=== PATIENT | female | born 1960 | race Caucasian/White ===

== ENCOUNTER → 2016-07-09 | Outpatient (CLI) | payer OTHER, MEDICARE ==
[~2016-07-09] MED LIST: /CLON1TA OR; ADVAIR INH; ADVIL PM OR; AMOX500C OR; ASPI1TAB PO; BABY81CH OR; BACL10TA2 OR; BACL10TA2 PO; BUSP5TA PO; CALCTAB68 PO; CELE40TA OR; COLA50CA OR; DICLCRY PO; DULO30CA PO; FLEX10TA2 PO; FOLI800T PO; HYDROXCHLOROQUINE OR; IBUP60TA PO; MELO15TA3 PO; METH10TA2; METH5TAB2 OR; METH750T; MOTR200T4 OR; MULTCAP9 PO; MULTIVIT; MULTIVIT OR; NAPR500T OR; NAPR500T81 OR; NEUR300C OR; NEUR400C OR; OXYC-208 PO; OXYCODONE IR PO; PRED10TA2 OR; PRED2.5T PO; PRED5TAB OR; PREG100CA PO; PRIL20CA OR; PROV90AE INH; ROBA750T; SING5CHW PO; SOMA350T OR; TENORETIC 50/25 OR; TRAM50TA2 OR; TRAZ100T OR; TYLENOL ARTHRITIS OR; VARE05TA OR; VICO5TAB OR; VITA100027 OR; VITA100037 PO; VITA400C35 PO; VITA500C OR; VITA500T3 PO; VITAMIN E OR; VOLT1GEL EXT; VOLT1GEL2 TD; Z PAK PO; ZINC50TA22 PO; arthritis tylenol; methadone OR; topomax PO
--- NOTE | 2016-07-10 00:32 | ECWPNPC ---
PATIENT NAME: ELLE MORENO : 1960 GENDER: FEMALE VISIT DATE: 07/09/2016 DISCHARGE DATE: 07/09/16 1210 VISIT LOCKED DATE TIME: PHYSICIAN: HELEN ANTHONY RESOURCE: HELEN ANTHONY REASON FOR APPOINTMENT 1. BACK HISTORY OF PRESENT ILLNESS HISTORY OF PRESENT ILLNESS: PAIN THE PATIENT DESCRIBES THE PAIN... FALL RISK SCREENING: SCREENING :NO FALLS IN THE PAST YEAR TODAY'S VISIT: NOTES: RATES PAIN TODAY 6.5/10. TODAY WORST AREA OF PAIN IS RIGHT HIP. NO FALLS SINCE FEBRUARY. IS HAVING BURNING IN RIGHT SHOULDER. HAS BEEN DIAGNOSES WITH OSTEOPOROSIS AND WILL BE STARTING ON MEDS FOR THIS. ALSO HAS BEEN DIAGNOSED WITH MACULAR DEGENERATION AND IS HAVING INTRAOCULAR INJECTIONS. . CURRENT MEDICATIONS TAKING ALBUTEROL 90 MCG/ACT AEROSOL SOLUTION INHALATION EVERY 4 HOURS NEEDED TAKING ASPIR-81 81 MG TABLET DELAYED RELEASE 1 TABLET ORALLY ONCE A DAY TAKING CALCIUM + D 600-200 MG-UNIT TABLET 1 TABLET WITH FOOD ORALLY BID TAKING COLACE 100 MG CAPSULE 1 CAPSULE NEEDED ORALLY BID TAKING FOLIC ACID 800 MCG TABLET 1 TABLET ORALLY BID TAKING MULTI FOR HER 50+ TABLET 1 TAB(S) ORALLY BID TAKING OMEPRAZOLE 20 MG CAPSULE DELAYED RELEASE 1 CAPSULE ORALLY BID TAKING SINGULAIR 10 MG TABLET 1 TABLET IN THE EVENING ORALLY ONCE A DAY TAKING ADVAIR DISKUS 100-50 MCG/DOSE AEROSOL POWDER BREATH ACTIVATED 1 PUFF INHALATION TWICE A DAY TAKING VITAMIN E 400 UNIT CAPSULE 1 CAPSULE ORALLY BID TAKING TRAZODONE HCL 100 MG TABLET 1 TABLET AT BEDTIME ORALLY ONCE DAILY TAKING ZINC 50 MG TABLET 1 TABLET ORALLY BID TAKING HYDROXYCHLOROQUINE SULFATE 200 MG TABLET 1 TABLET WITH FOOD OR MILK ORALLY BID TAKING LISINOPRIL 20 MG TABLET 1 TABLET ORALLY ONCE A DAY TAKING BACLOFEN 20 MG TABLET 1 TABLET WITH FOOD OR MILK ORALLY FOUR TIMES DAILY TAKING CYMBALTA 30 MG CAPSULE DELAYED RELEASE PARTICLES 1 CAPSULE ORALLY ONCE A DAY TAKING METHADONE HCL 10 MG TABLET 2 TABLETS ORALLY Q 8 HOURS MDD=6 CHRONIC PAIN TAKING OXYCODONE HCL 5 MG TABLET 1 TABLET ORALLY EVERY 4-6 HRS PRN PAIN MDD=5 TAKING CHANTIX STARTER GALINDO 2 TAB ORAL DAILY NOT-TAKING CYANOCOBALAMIN 500 MCG TABLET 1 TABLET ORALLY BID NOT-TAKING ZOFRAN ODT 4 MG TABLET DISPERSIBLE 1 TABLET ON THE TONGUE AND ALLOW TO DISSOLVE ORALLY EVERY 8 HRS NOT-TAKING ATORVASTATIN CALCIUM 10 MG TABLET 1 TABLET ORALLY ONCE A DAY NOT-TAKING VITAMIN D 1000 UNIT TABLET 1 TABLET ORALLY BID DISCONTINUED BUPROPION HCL (SR) 150 MG TABLET EXTENDED RELEASE 12 HOUR 1 TABLET ORALLY TWICE A DAY DISCONTINUED OXYCODONE HCL 5 MG CAPSULE 1 CAPSULE NEEDED ORALLY EVERY 4-6 HRS PRN PAIN MDD 6 MEDICATION LIST REVIEWED AND RECONCILED WITH THE PATIENT PAST MEDICAL HISTORY 2015 LEFT FOOT FX ANKLE SPRAIN - FALL OCT 15 HTN, DEPRESSION, COPD ,LUPUS, FIBROMYALGIA MACULAR DEGENERATION OSTEOPOROSIS ALLERGIES FUROSEMIDE: RASH AND SOB: ALLERGY SULFA (FOR ALLERGY USE ONLY): RASH AND SOB: ALLERGY CODEINE PHOSPHATE (FOR ALLERGIES USE ONLY): NAUSEA/VOMITING: SIDE EFFECTS TOPIRAMATE: KIDNEY STONES: ALLERGY NSAIDS: RASH: ALLERGY LYRICA: SEVERE EDEMA: ALLERGY SOCIAL HISTORY GENERAL: TOBACCO USE ARE YOU A:NONSMOKER LEARNING BARRIERS / SPECIAL NEEDS ORIENTED TO PLAN OF CARE: PATIENT, PAIN MANAGEMENT PATIENT, ORIENTED TO PLAN OF CARE: PATIENT, PAIN MANAGEMENT PATIENT. NEW PATIENT PAIN DIARY TODAY'S VISITNOTES FROM 0-10, WHAT LEVEL IS YOUR PAIN TODAY?0 PAIN CLINIC PFS, CLERGY, PUBLIC HEALTH REFERRALS PFS REFERRAL NEEDED?NO CLERGY REFERRAL NEEDED?NO PUBLIC HEALTH REFERRAL NEEDED?NO WAS THE PROVIDER NOTIFIED OF ANY PERTINENT INFO?NO PFS REFERRAL NEEDED?NO CLERGY REFERRAL NEEDED?NO PUBLIC HEALTH REFERRAL NEEDED?NO WAS THE PROVIDER NOTIFIED OF ANY PERTINENT INFO?NO REVIEW OF SYSTEMS CONSTITUTIONAL: ANY CHANGE IN YOUR MEDICAL CONDITION? YES MACULAR DEGENERATION. RECEIVING INJECTS AT DR [facility] IN [place].&NBSP;. CHILLS &NBSP;&NBSP; NO&NBSP;. FEVER &NBSP;&NBSP; NO&NBSP;. INFECTION: DO YOU HAVE NEW INFECTIONS? NO - RECENT SINUS INFECTION TREATED WITH ABX . DO YOU HAVE HISTORY OF MRSA? NO . MUSCULOSKELETAL: ANY NEW PATTERNS OF PAIN OR NUMBNESS? NO . GASTROENTEROLOGY: ANY NEW CHANGE IN BOWEL CONTROL? NO . GENITOURINARY: ANY NEW CHANGE IN BLADDER CONTROL? NO . IS THERE A CHANCE YOU COULD BE ? NO . HEMATOLOGY/LYMPH: DO YOU TAKE ANY BLOOD THINNERS? (FOR EXAMPLE- COUMADIN, PLAVIX, AGGRENOX, PLATEL, PRADAXA, OR XARELTO) NO . WHEN WAS YOUR LAST DOSE? DATE: TIME: . NEUROLOGY: HAVE YOU FALLEN IN THE PAST 6 MONTHS? YES 02/2016-FX'D LEFT FOOT.&NBSP;. ANY NEW EXTREMITY NUMBNESS OR WEAKNESS? &NBSP;&NBSP; NO&NBSP;. CARDIOLOGY: DO YOU HAVE A PACEMAKER OR DEFIBRILLATOR? NO . CHEST PAIN PATIENT DENIES . HIGH BLOOD PRESSURE RECENT PERSSITANT ELEVATION - FOLLOWING CLOSELY WITH PCP . RESPIRATORY: HAVE YOU BEEN SICK IN THE PAST WEEK? NO . FEVER NO . FLU LIKE SYMPTOMS? NO . COUGH NO . INTEGUMENTARY: DO YOU HAVE ANY RASHES OR OPEN SORES? NO . ALLERGIC/IMMUNO: ARE YOU ALLERGIC TO SHELLFISH OR IV DYE? NO . ANY NEW ALLERGIES? NO . PSYCHIATRIC: DO YOU HAVE THOUGHTS OF HURTING YOURSELF OR SOMEONE ELSE? NO . ARE YOU ABUSED, NEGLECTED, OR IN AN UNSAFE ENVIRONMENT? NO . ENDOCRINOLOGY: ARE YOU DIABETIC? NO . OTHER: DO YOU NEED ANY PRESCRIPTIONS? YES OXYCODONE/METHADONE . IF YES, PLEASE LIST: ____ . ANY NEW PROBLEMS WITH YOUR MEDICATIONS? NO . WHEN DID YOU LAST EAT? ____ . WHEN DID YOU LAST DRINK? ____ . WHAT DID YOU LAST DRINK? ____ . NAME OF PERSON DRIVING YOU HOME? ____ . DO YOU HAVE ANY OTHER QUESTIONS OR CONCERNS NO . REVIEWED BY: PROVIDER: HELEN AHUMADA . VITAL SIGNS WT 172 LBS, HT 63.75 IN, BMI 29.75 INDEX, BP 180/90 MANUAL, HR 103 /MIN, RR 16 /MIN, TEMP 96.3 F, OXYGEN SAT % 98, NA INITIALS TL 1137, REVIEWED BY: MLF. EXAMINATION GENERAL EXAMINATION: PSYCHALERT , ORIENTED X 3 , QUIET, APPEARS FATIGUED. LUNGS:BILATERAL WHEEZES, NO CRACKLES. HEART:HEART RATE REGULAR, RAPID. MUSCULOSKELETAL:MUSCLE STRENGTH TESTING 5/5 BILATERAL UPPER AND LOWER EXTREMITIES BUT MOVEMENT IS LIMITED BY JOINT PAIN. EXQUISITE TENDERNESS OVER RIGHT SACRUM AND TROCANTER. , TRIGGER POINTS:, ELICITED WITH PALPATION OVER LUMBAR PARAVERTEBRAL MUSCLES AND INTO THE SECRUM. RESTRICTION OF ROM IN THIS AREA. SKIN:HEALING DISCOID LESIONS OVER FOREARMS AND HANDS. ASSESSMENTS LUMBAR DISC DISEASE - M51.9 (PRIMARY) TREATMENT LUMBAR DISC DISEASE NOTES: OK TO TRY OVER THE COUNTER TENS SYSTEM. CONTINUE CURRENT MEDS. CLINICAL NOTES: ISTOP REGISTRY REVIEWED AND DEMNOSTRATES COMPLLIANCE. BRINGS IN MEDICATIONS WHICH IS APPROPRIATE FOR WHAT WAS DISPENSED. RECENT URINE TOXICOLOGY REVIEWED. NO UNAUTHORIZED MEDICATIONS. NO ILLICIT SUBSTANCES AND PRESCRIBED MEDICATIONS WERE PRESENT. PROCEDURE CODES FA211 ESTABILISHED PATIENT [facility] CHARGE DISPOSITION & COMMUNICATION FOLLOW UP 6-8 WEEKS ELECTRONICALLY SIGNED BY CARI BROOKS ON 07/09/2016 AT 01:13 PM EST DISCLAIMER : THIS IS A VISIT SUMMARY EXTRACTED FROM THE [employer] CHART. IT IS NOT A COPY OF THE [employer] PROGRESS NOTE. LENNY
== END ==
LOC: M PAIN 11:20
PROVIDERS: ATTEND Nurse Practitioner Family
DX: Z09 Encounter for follow-up examination after completed treatment for conditions other than malignant neoplasm (principal); G89.29 Other chronic pain; M51.9 Unspecified thoracic, thoracolumbar and lumbosacral intervertebral disc disorder; I10 Essential (primary) hypertension; M25.551 Pain in right hip; F32.9 Major depressive disorder, single episode, unspecified; J44.9 Chronic obstructive pulmonary disease, unspecified; M32.9 Systemic lupus erythematosus, unspecified; H35.30 Unspecified macular degeneration; M79.7 Fibromyalgia; M81.0 Age-related osteoporosis without current pathological fracture; Z79.891 Long term (current) use of opiate analgesic; Z79.51 Long term (current) use of inhaled steroids; Z79.899 Other long term (current) drug therapy; Z79.82 Long term (current) use of aspirin; Z88.6 Allergy status to analgesic agent; Z88.2 Allergy status to sulfonamides; Z88.8 Allergy status to other drugs, medicaments and biological substances

== ENCOUNTER → 2016-12-09 | Outpatient (CLI) | payer MEDICARE, OTHER ==
--- NOTE | 2016-12-29 01:28 | ECWPNPC ---
PATIENT NAME: ELLE MORENO : 1960 GENDER: FEMALE VISIT DATE: 12/09/2016 DISCHARGE DATE: 12/09/16 1128 VISIT LOCKED DATE TIME: PHYSICIAN: HELEN ANTHONY RESOURCE: HELEN ANTHONY REASON FOR APPOINTMENT 1. BACK HISTORY OF PRESENT ILLNESS HISTORY OF PRESENT ILLNESS: PAIN THE PATIENT DESCRIBES THE PAIN... FALL RISK SCREENING: SCREENING :NO FALLS IN THE PAST YEAR TODAY'S VISIT: NOTES: HAD FALL 10/26/16 WITH NEW FRACTURES OF LEFT PELVIS, BRUISE TO LEFT WILKINS AND ELEVATED 2 ND TOES. HAS CONSTANT BURNING ACHING PAIN IN LEFT THIGH. TO SEE ORTHO AGAIN TOMORROW. RATES PAIN LEVEL TODAY 7/10 WITH WORST AREA IN LEFT HIP/PELVIS. NOTES A GRINDING IN PELVIS WITH ATTEMPTING TO WALK.. CURRENT MEDICATIONS TAKING ALBUTEROL 90 MCG/ACT AEROSOL SOLUTION INHALATION EVERY 4 HOURS NEEDED TAKING ASPIR-81 81 MG TABLET DELAYED RELEASE 1 TABLET ORALLY ONCE A DAY TAKING CALCIUM + D 600-200 MG-UNIT TABLET 1 TABLET WITH FOOD ORALLY BID TAKING COLACE 100 MG CAPSULE 1 CAPSULE NEEDED ORALLY BID TAKING FOLIC ACID 800 MCG TABLET 1 TABLET ORALLY BID TAKING MULTI FOR HER 50+ TABLET 1 TAB(S) ORALLY BID TAKING OMEPRAZOLE 20 MG CAPSULE DELAYED RELEASE 1 CAPSULE ORALLY BID TAKING SINGULAIR 10 MG TABLET 1 TABLET IN THE EVENING ORALLY ONCE A DAY TAKING ADVAIR DISKUS 100-50 MCG/DOSE AEROSOL POWDER BREATH ACTIVATED 1 PUFF INHALATION TWICE A DAY TAKING VITAMIN E 400 UNIT CAPSULE 1 CAPSULE ORALLY BID TAKING TRAZODONE HCL 100 MG TABLET 1 TABLET AT BEDTIME ORALLY ONCE DAILY TAKING ZINC 50 MG TABLET 1 TABLET ORALLY BID TAKING HYDROXYCHLOROQUINE SULFATE 200 MG TABLET 1 TABLET WITH FOOD OR MILK ORALLY BID TAKING LISINOPRIL 20 MG TABLET 1 TABLET ORALLY ONCE A DAY TAKING CHANTIX STARTER GALINDO 2 TAB ORAL DAILY TAKING BACLOFEN 20 MG TABLET 1 TABLET WITH FOOD OR MILK ORALLY FOUR TIMES DAILY TAKING METHADONE HCL 10 MG TABLET 2 TABLETS ORALLY Q 8 HOURS MDD=6 CHRONIC PAIN TAKING CYMBALTA 30 MG CAPSULE DELAYED RELEASE PARTICLES 1 CAPSULE ORALLY ONCE A DAY TAKING OXYCODONE HCL 5 MG TABLET 1 TABLET ORALLY EVERY 4-6 HRS PRN PAIN MDD=5 TAKING PROLIA 60 MG/ML SOLUTION SUBCUTANEOUS EVERY SIX MONTHS NOT-TAKING CYANOCOBALAMIN 500 MCG TABLET 1 TABLET ORALLY BID NOT-TAKING ZOFRAN ODT 4 MG TABLET DISPERSIBLE 1 TABLET ON THE TONGUE AND ALLOW TO DISSOLVE ORALLY EVERY 8 HRS NOT-TAKING ATORVASTATIN CALCIUM 10 MG TABLET 1 TABLET ORALLY ONCE A DAY NOT-TAKING VITAMIN D 1000 UNIT TABLET 1 TABLET ORALLY BID DISCONTINUED OXYCODONE HCL 15 MG TABLET 1 TABLET NEEDED ORALLY EVERY 6 HRS PRN PAIN MDD=4 MEDICATION LIST REVIEWED AND RECONCILED WITH THE PATIENT PAST MEDICAL HISTORY 2015 LEFT FOOT FX ANKLE SPRAIN - FALL OCT 15 HTN, DEPRESSION, COPD ,LUPUS, FIBROMYALGIA MACULAR DEGENERATION OSTEOPOROSIS ALLERGIES FUROSEMIDE: RASH AND SOB: ALLERGY SULFA (FOR ALLERGY USE ONLY): RASH AND SOB: ALLERGY CODEINE PHOSPHATE (FOR ALLERGIES USE ONLY): NAUSEA/VOMITING: SIDE EFFECTS TOPIRAMATE: KIDNEY STONES: ALLERGY NSAIDS: RASH: ALLERGY LYRICA: SEVERE EDEMA: ALLERGY REVIEW OF SYSTEMS REVIEWED BY: PROVIDER: HELEN AHUMADA . CONSTITUTIONAL: ANY CHANGE IN YOUR MEDICAL CONDITION? YES, FELL AND FX PELVIS USING WALKER . CHILLS NO . FEVER NO . INFECTION: DO YOU HAVE NEW INFECTIONS? NO . DO YOU HAVE HISTORY OF MRSA? NO . MUSCULOSKELETAL: ANY NEW PATTERNS OF PAIN OR NUMBNESS? NO . GASTROENTEROLOGY: ANY NEW CHANGE IN BOWEL CONTROL? NO . GENITOURINARY: ANY NEW CHANGE IN BLADDER CONTROL? NO . IS THERE A CHANCE YOU COULD BE ? NO . HEMATOLOGY/LYMPH: DO YOU TAKE ANY BLOOD THINNERS? (FOR EXAMPLE- COUMADIN, PLAVIX, AGGRENOX, PLATEL, PRADAXA, OR XARELTO) NO . WHEN WAS YOUR LAST DOSE? DATE: TIME: . NEUROLOGY: HAVE YOU FALLEN IN THE PAST 6 MONTHS? YES . ANY NEW EXTREMITY NUMBNESS OR WEAKNESS? NO . CARDIOLOGY: DO YOU HAVE A PACEMAKER OR DEFIBRILLATOR? NO . RESPIRATORY: HAVE YOU BEEN SICK IN THE PAST WEEK? NO . FEVER NO . FLU LIKE SYMPTOMS? NO . COUGH NO . INTEGUMENTARY: DO YOU HAVE ANY RASHES OR OPEN SORES? NO . ALLERGIC/IMMUNO: ARE YOU ALLERGIC TO SHELLFISH OR IV DYE? NO . ANY NEW ALLERGIES? NO . PSYCHIATRIC: DO YOU HAVE THOUGHTS OF HURTING YOURSELF OR SOMEONE ELSE? NO . ARE YOU ABUSED, NEGLECTED, OR IN AN UNSAFE ENVIRONMENT? NO . ENDOCRINOLOGY: ARE YOU DIABETIC? NO . OTHER: DO YOU NEED ANY PRESCRIPTIONS? YES, . IF YES, PLEASE LIST: METHADONE, OXYCODONE . ANY NEW PROBLEMS WITH YOUR MEDICATIONS? NO . WHEN DID YOU LAST EAT? ____ . WHEN DID YOU LAST DRINK? ____ . WHAT DID YOU LAST DRINK? ____ . NAME OF PERSON DRIVING YOU HOME? ____ . DO YOU HAVE ANY OTHER QUESTIONS OR CONCERNS NO . VITAL SIGNS WT 173.0 LBS, HT 63.75 IN, BMI 29.93 INDEX, BP 153/90 MM HG, HR 85 /MIN, RR 16 /MIN, TEMP 97.9 F, OXYGEN SAT % 98%, NA INITIALS TL 1036, REVIEWED BY: CM. EXAMINATION GENERAL EXAMINATION: PSYCHALERT , ORIENTED X 3 , QUIET, APPEARS FATIGUED. LUNGS:BILATERAL WHEEZES, NO CRACKLES. HEART:HEART RATE REGULAR, RAPID. MUSCULOSKELETAL:MUSCLE STRENGTH TESTING 5/5 BILATERAL UPPER AND LOWER EXTREMITIES BUT MOVEMENT IS LIMITED BY JOINT PAIN. EXQUISITE TENDERNESS OVER LEFT SACRUM AND TROCANTER. , TRIGGER POINTS:, ELICITED WITH PALPATION OVER LUMBAR PARAVERTEBRAL MUSCLES AND INTO THE SECRUM. RESTRICTION OF ROM IN THIS AREA. WALKER USED FOR SUPPORT. SKIN:HEALING DISCOID LESIONS OVER FOREARMS AND HANDS. ASSESSMENTS MULTIPLE CLOSED FRACTURES OF PELVIS WITHOUT DISRUPTION OF PELVIC RING, SEQUELA - S32.82XS (PRIMARY) PRIMARY OSTEOARTHRITIS INVOLVING MULTIPLE JOINTS - M15.0 LUMBAR DISC DISPLACEMENT WITHOUT MYELOPATHY - M51.26 CHRONIC PRESCRIPTION OPIATE USE - Z79.891 TREATMENT MULTIPLE CLOSED FRACTURES OF PELVIS WITHOUT DISRUPTION OF PELVIC RING, SEQUELA START OXYCODONE HCL TABLET, 15 MG, 1 TABLET, ORALLY, EVERY 6 -8 HRS PRN PAIN MDD=3, 30 DAY(S), 90, REFILLS 0 NOTES: UTOX TODAYWILL INCREASE OXYCODONE TO 15 MG EVERY 6-8 HRS = MAX 3/DAY FOR I MONTH. CLINICAL NOTES: ISTOP REGISTRY REVIEWED AND DEMNOSTRATES COMPLLIANCE. BRINGS IN MEDICATIONS WHICH IS APPROPRIATE FOR WHAT WAS DISPENSED. RECENT URINE TOXICOLOGY REVIEWED. NO UNAUTHORIZED MEDICATIONS. NO ILLICIT SUBSTANCES AND PRESCRIBED MEDICATIONS WERE PRESENT. , RISKS AND BENEFITS OF NARCOTIC/OPIOD MEDICATIONS WERE REVIEWED WITH PATIENT - THIS INCLUDES BUT IS NOT LIMITED TO RISK OF DEPENDANCE/DEVELOPMENT OF ADDICTION, MOOD DISTURBANCE AND DEPRESSION, OSTEOPOROSIS, HORMONAL AND LABIDAL CHANGES, RESPIRATORY DEPRESSION AND . PATIENT IS ADVISED NOT TO DRIVE WHILE ON THESE MEDICATIONS. PROCEDURE CODES FA211 ESTABILISHED PATIENT [facility] CHARGE [id number] PAIN ASSESS POS TOOL F/U PLAN DOC G8427 DOC MEDS VERIFIED W/PT OR RE DISPOSITION & COMMUNICATION FOLLOW UP 2 MONTHS (REASON: BACK/PELVIS PAIN ) ELECTRONICALLY SIGNED BY CARI BROOKS ON 12/28/2016 AT 08:47 AM EDT DISCLAIMER : THIS IS A VISIT SUMMARY EXTRACTED FROM THE [employer] CHART. IT IS NOT A COPY OF THE [employer] PROGRESS NOTE. LENNY
== END | disposition home or self-care (01) ==
LOC: M PAIN 10:00
PROVIDERS: ATTEND Nurse Practitioner Family
DX: G89.29 Other chronic pain (principal); S32.82XS Multiple fractures of pelvis without disruption of pelvic ring, sequela; M15.0 Primary generalized (osteo)arthritis; M51.26 Other intervertebral disc displacement, lumbar region; X58.XXXS Exposure to other specified factors, sequela; Y92.89 Other specified places as the place of occurrence of the external cause; Y93.89 Activity, other specified; Y99.8 Other external cause status; I10 Essential (primary) hypertension; F33.9 Major depressive disorder, recurrent, unspecified; J44.9 Chronic obstructive pulmonary disease, unspecified; D68.62 Lupus anticoagulant syndrome; M79.7 Fibromyalgia; H35.30 Unspecified macular degeneration; M81.0 Age-related osteoporosis without current pathological fracture; Z79.899 Other long term (current) drug therapy; Z79.82 Long term (current) use of aspirin; Z79.51 Long term (current) use of inhaled steroids; Z88.2 Allergy status to sulfonamides; Z88.5 Allergy status to narcotic agent; Z88.8 Allergy status to other drugs, medicaments and biological substances

== ENCOUNTER → 2017-05-12 | Outpatient (CLI) | payer OTHER, MEDICARE | LOC: M PAIN 10:15 | DX: M51.9 Unspecified thoracic, thoracolumbar and lumbosacral intervertebral disc disorder (principal); S32.82XS Multiple fractures of pelvis without disruption of pelvic ring, sequela; S42.91XS Fracture of right shoulder girdle, part unspecified, sequela; I10 Essential (primary) hypertension; F32.9 Major depressive disorder, single episode, unspecified; J44.9 Chronic obstructive pulmonary disease, unspecified; M79.7 Fibromyalgia; Z88.2 Allergy status to sulfonamides; Z88.5 Allergy status to narcotic agent; Z88.6 Allergy status to analgesic agent; Z88.8 Allergy status to other drugs, medicaments and biological substances; Z79.84 Long term (current) use of oral hypoglycemic drugs; Z79.891 Long term (current) use of opiate analgesic; Z79.899 Other long term (current) drug therapy; Z98.84 Bariatric surgery status | CPT/HCPCS: G0463 ==

== ENCOUNTER → 2017-09-13 | Outpatient (CLI) | payer OTHER, MEDICARE | LOC: M PAIN 10:15 | DX: M51.26 Other intervertebral disc displacement, lumbar region (principal); M15.0 Primary generalized (osteo)arthritis; I10 Essential (primary) hypertension; F32.9 Major depressive disorder, single episode, unspecified; J44.9 Chronic obstructive pulmonary disease, unspecified; M32.9 Systemic lupus erythematosus, unspecified; M79.7 Fibromyalgia; M85.9 Disorder of bone density and structure, unspecified; F17.210 Nicotine dependence, cigarettes, uncomplicated; Z79.82 Long term (current) use of aspirin; Z79.891 Long term (current) use of opiate analgesic; Z79.899 Other long term (current) drug therapy; Z88.2 Allergy status to sulfonamides; Z88.5 Allergy status to narcotic agent; Z88.6 Allergy status to analgesic agent; Z88.8 Allergy status to other drugs, medicaments and biological substances | CPT/HCPCS: G0463 ==

== ENCOUNTER → 2018-01-12 | Outpatient (CLI) | payer OTHER, MEDICARE | LOC: M PAIN 11:30 | DX: M51.26 Other intervertebral disc displacement, lumbar region (principal); M15.0 Primary generalized (osteo)arthritis; I10 Essential (primary) hypertension; F32.9 Major depressive disorder, single episode, unspecified; J44.9 Chronic obstructive pulmonary disease, unspecified; M85.80 Other specified disorders of bone density and structure, unspecified site; M32.9 Systemic lupus erythematosus, unspecified; F17.210 Nicotine dependence, cigarettes, uncomplicated; Z79.82 Long term (current) use of aspirin; Z79.891 Long term (current) use of opiate analgesic; Z79.899 Other long term (current) drug therapy; Z88.2 Allergy status to sulfonamides; Z88.5 Allergy status to narcotic agent; Z88.6 Allergy status to analgesic agent; Z88.8 Allergy status to other drugs, medicaments and biological substances; Z98.84 Bariatric surgery status | CPT/HCPCS: G0463 ==

== ENCOUNTER → 2018-06-08 | Outpatient (CLI) | payer OTHER, MEDICARE ==
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
== END ==
LOC: M PAIN 10:00
PROVIDERS: ATTEND Nurse Practitioner Family
DX: M51.9 Unspecified thoracic, thoracolumbar and lumbosacral intervertebral disc disorder (principal); M25.511 Pain in right shoulder; G89.29 Other chronic pain; L93.0 Discoid lupus erythematosus; I10 Essential (primary) hypertension; J44.9 Chronic obstructive pulmonary disease, unspecified; M79.7 Fibromyalgia; F32.9 Major depressive disorder, single episode, unspecified; F17.210 Nicotine dependence, cigarettes, uncomplicated; Z98.84 Bariatric surgery status; Z96.611 Presence of right artificial shoulder joint; Z88.2 Allergy status to sulfonamides; Z88.5 Allergy status to narcotic agent; Z88.6 Allergy status to analgesic agent; Z88.8 Allergy status to other drugs, medicaments and biological substances; Z79.82 Long term (current) use of aspirin; Z79.891 Long term (current) use of opiate analgesic; Z79.899 Other long term (current) drug therapy

== ENCOUNTER → 2018-08-08 | Outpatient (CLI) | payer OTHER, MEDICARE ==
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
== END ==
LOC: M PAIN 10:15
PROVIDERS: ATTEND Nurse Practitioner Family
DX: M51.9 Unspecified thoracic, thoracolumbar and lumbosacral intervertebral disc disorder (principal); M25.511 Pain in right shoulder; G89.29 Other chronic pain; I10 Essential (primary) hypertension; Z86.59 Personal history of other mental and behavioral disorders; J44.9 Chronic obstructive pulmonary disease, unspecified; Z96.611 Presence of right artificial shoulder joint; Z87.39 Personal history of other diseases of the musculoskeletal system and connective tissue; M79.7 Fibromyalgia; M81.0 Age-related osteoporosis without current pathological fracture; F17.210 Nicotine dependence, cigarettes, uncomplicated; Z98.84 Bariatric surgery status; Z88.2 Allergy status to sulfonamides; Z88.5 Allergy status to narcotic agent; Z88.6 Allergy status to analgesic agent; Z88.8 Allergy status to other drugs, medicaments and biological substances; Z79.82 Long term (current) use of aspirin; Z79.891 Long term (current) use of opiate analgesic; Z79.899 Other long term (current) drug therapy

== ENCOUNTER → 2018-11-08 | Outpatient (CLI) | payer MEDICARE, OTHER ==
[~2018-11-08] MED LIST changes: -/CLON1TA OR; +CLON-412 OR; -DULO30CA PO; +DULO30CA9 PO; +IBUP600T42 PO; -IBUP60TA PO
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
== END ==
LOC: M PAIN 10:00
PROVIDERS: ATTEND Nurse Practitioner Family
DX: M15.0 Primary generalized (osteo)arthritis (principal); G89.29 Other chronic pain; I10 Essential (primary) hypertension; Z86.59 Personal history of other mental and behavioral disorders; J44.9 Chronic obstructive pulmonary disease, unspecified; M79.7 Fibromyalgia; M81.0 Age-related osteoporosis without current pathological fracture; Z86.2 Personal history of diseases of the blood and blood-forming organs and certain disorders involving the immune mechanism; Z98.84 Bariatric surgery status; Z96.611 Presence of right artificial shoulder joint; F17.210 Nicotine dependence, cigarettes, uncomplicated; Z88.2 Allergy status to sulfonamides; Z88.5 Allergy status to narcotic agent; Z88.6 Allergy status to analgesic agent; Z88.8 Allergy status to other drugs, medicaments and biological substances; Z79.82 Long term (current) use of aspirin; Z79.891 Long term (current) use of opiate analgesic; Z79.899 Other long term (current) drug therapy

== ENCOUNTER → 2018-11-08 | Outpatient (CLI) | payer OTHER ==
--- NOTE | 2018-11-08 12:39 | REP ---
Bilateral femurs: Left femur four views : There is no fracture or dislocation. Mineralization and joint spaces are normal. There are no calcifications or foreign bodies. 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 Right femur four views : There is no fracture or dislocation. Mineralization and joint spaces are normal. There are no calcifications or foreign bodies. Impression: Negative right femur . Electronically Signed by Thang Walker MD 11/08/2018 12:31 P
== END ==
LOC: M RAD 11:35
PROVIDERS: ATTEND Internal Medicine
DX: M81.0 Age-related osteoporosis without current pathological fracture (principal)
CPT/HCPCS: 73552; G0463

== ENCOUNTER → 2019-01-05 | Outpatient (CLI) | payer OTHER, MEDICARE ==
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
== END ==
LOC: M PAIN 11:45
PROVIDERS: ATTEND Nurse Practitioner Family
DX: M15.0 Primary generalized (osteo)arthritis (principal); G89.29 Other chronic pain; I10 Essential (primary) hypertension; Z86.59 Personal history of other mental and behavioral disorders; J44.9 Chronic obstructive pulmonary disease, unspecified; M79.7 Fibromyalgia; L93.0 Discoid lupus erythematosus; M81.0 Age-related osteoporosis without current pathological fracture; F17.210 Nicotine dependence, cigarettes, uncomplicated; Z88.2 Allergy status to sulfonamides; Z88.5 Allergy status to narcotic agent; Z88.6 Allergy status to analgesic agent; Z88.8 Allergy status to other drugs, medicaments and biological substances; Z79.82 Long term (current) use of aspirin; Z79.891 Long term (current) use of opiate analgesic; Z79.899 Other long term (current) drug therapy

== ENCOUNTER → 2019-04-07 | Outpatient (CLI) | payer OTHER, MEDICARE, MEDICAID ==
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
== END ==
LOC: M PAIN 11:00
PROVIDERS: ATTEND Nurse Practitioner Family
DX: M15.0 Primary generalized (osteo)arthritis (principal); G89.29 Other chronic pain; I10 Essential (primary) hypertension; Z86.59 Personal history of other mental and behavioral disorders; J44.9 Chronic obstructive pulmonary disease, unspecified; M79.7 Fibromyalgia; Z98.84 Bariatric surgery status; Z87.891 Personal history of nicotine dependence; Z88.2 Allergy status to sulfonamides; Z88.5 Allergy status to narcotic agent; Z88.6 Allergy status to analgesic agent; Z88.8 Allergy status to other drugs, medicaments and biological substances; Z79.82 Long term (current) use of aspirin; Z79.891 Long term (current) use of opiate analgesic; Z79.899 Other long term (current) drug therapy